=== PATIENT | female | born 1985 | race African-American/Black ===

== ENCOUNTER 2016-07-28 10:03 | Inpatient (IN) | payer MEDICAID ==
[2016-07-28] MEDS ORDERED: NS 2,400 ML IV ONE (10:25)
[2016-07-28] MEDS ORDERED: IBUPROFEN 200 MG TAB PO ONE (10:26)
[2016-07-28 10:30] LABS: COLOR YELLOW; LEUKOCYTE ESTERASE,URINE 3+ (NEGATIVE); NITRITE,URINE POSITIVE (NEGATIVE)
[2016-07-28] MEDS ORDERED: fentaNYL 100 MCG/2 ML INJ IVP ONE (10:30)
[2016-07-28 10:33] LABS: BACTERIA 2+ /hpf (NONE SEEN); MUCUS TRACE /lpf (NONE-1+); RBC,URINE 15-25 /hpf (0-3); WBC,URINE 50-182 /hpf (0-3)
[2016-07-28] MEDS ORDERED: ONDANSETRON 4 MG/2 ML VIAL ONE (10:33)
[2016-07-28 10:51] LABS: % IMMATURE GRANULYOCYTES 0.6 % (0.0-1.1); ABSOLUTE IMMATURE GRANULOCYTES 0.09 10^3/uL (0.00-0.10); ADD DIFF? NO; ADD MORPH? NO; ADD SCAN? NO; ATYPICAL LYMPHOCYTE FLAG 10 (0-99); FRAGMENT RBC FLAG 0 (0-99); HEMATOCRIT 41.6 % (38.0-47.0); HEMOGLOBIN 14.8 g/dL (12.6-16.3); LEFT SHIFT FLG 0 (0-99); LIPEMIA HEMOLYSIS FLAG 90 (0-99); MEAN CELL HEMOGLOBIN 32.5 pg (27.9-34.1); MEAN CELL HEMOGLOBIN CONCENTR. 35.6 g/dL (32.4-36.7); MEAN CELL VOLUME 91.4 fL (81.5-99.8); PLATELET CLUMPS FLAG 10 (0-99); PLATELET COUNT 201 10^3/uL (150-400); RED BLOOD CELL COUNT 4.55 10^6/uL (4.18-5.33); RED CELL DISTRIBUTION WIDTH 12.6 % (11.5-15.2)
[2016-07-28] MEDS ORDERED: HYDROmorphONE/DILAUDID 1 MG/ML SYR IVP ONE (11:02)
[2016-07-28] MEDS ORDERED: HYDROmorphONE/DILAUDID 1 MG/ML SYR ONE (11:03)
[2016-07-28 11:10] LABS: APTT 26.1 SEC (23.0-38.0); INR 1.11 (0.83-1.16); PROTIME(PATIENT) 14.2 SEC (12.0-15.0)
[2016-07-28 11:22] LABS: ANION GAP 11 mEq/L (8-16); BILIRUBIN,TOTAL 1.3 mg/dL (0.1-1.4); CALCIUM 9.4 mg/dL (8.5-10.4); CARBON DIOXIDE 21 mEq/l (22-31); CHLORIDE 105 mEq/L (97-110); CREATININE 0.8 mg/dL (0.6-1.0); GLOMERULAR FILTRATION RATE > 60; GLUCOSE 101 mg/dL (70-100); POTASSIUM 3.9 mEq/L (3.5-5.2); SODIUM 137 mEq/L (134-144)
--- NOTE | 2016-07-28 12:38 | EDPHY ---
H & P Stated Complaint: Right flank and abd. pain - Personal History LMP (Females 10-55): Hysterectomy - Medical/Surgical History Other PMH: UTI HPI/ROS: Chief complaint: Fevers and chills, right flank pain History of present illness: This is a 31-year-old female who presents to the emergency department for fevers and chills and right flank pain. Patient reports the onset of symptoms over the last few days. Symptoms have been worsening. She denies precipitating factors. She denies alleviating factors. She denies other associated signs or symptoms including no vomiting, no diarrhea or constipation, she denies urinary symptoms. Review of systems: A 10 point review of systems was obtained and other than described above was negative (Billy Worthington) - Physical Exam Exam: General Appearance: Alert, unwell appearing. Eyes: Pupils equal and round no pallor or injection. ENT, Mouth: Mucous membranes moist. Respiratory: There are no retractions, lungs are clear to auscultation. Cardiovascular: Regular rate and rhythm. Gastrointestinal: Abdomen is soft and nontender, no masses, bowel sounds normal. Genitourinary: Right-sided CVA tenderness Neurological: Alert and oriented. Strength and sensation intact and symmetrical. Skin: Warm and dry, no rashes. Musculoskeletal: Neck is supple nontender. Extremities are symmetrical, full range of motion. Psychiatric: Patient is oriented X 3, there is no agitation. (Billy Worthington) Constitutional: Initial Vital Signs Temperature (C) 39.1 C H 07/28/16 10:04 Heart Rate 135 H 07/28/16 10:04 Respiratory Rate 22 H 07/28/16 10:04 Blood Pressure 141/100 H 07/28/16 10:04 O2 Sat (%) 95 07/28/16 10:04 O2 Delivery Mode Nasal Cannula O2 (L/minute) 2 Allergies/Adverse Reactions: acetaminophen [From Tylenol-Codeine #3] Allergy (Verified 07/28/16 10:08) amoxicillin Allergy (Verified 07/28/16 10:08) codeine [From Tylenol-Codeine #3] Allergy (Verified 07/28/16 10:08) hydrocodone [From Vicodin] Allergy (Verified 07/28/16 10:08) Medical Decision Making ED Course/Re-evaluation: Patient is discussed with my secondary supervising physician Dr. Olegario Veras. Patient presents to the emergency depart with fevers and chills and right flank pain. On presentation she is unwell appearing. She does meet sepsis screening criteria. However, she did not meet severe sepsis or septic shock criteria. She is aggressively IV hydrated. She is symptomatically treated. She does appear to have a urinary tract infection. She is started on IV Rocephin. Vital signs have improved. However she remains unwell appearing. She will be admitted to the hospital for further evaluation and care. The plan has been discussed with the patient voiced understanding and agreement with it. (Billy Worthington) Differential Diagnosis: Included but not limited to cystitis, pyelonephritis, nephrolithiasis, urosepsis (Billy Worthington) - Data Points Laboratory Results: Laboratory Results 07/28/16 10:34 07/28/16 10:34 07/28/16 07/28/16 07/28/16 11:45 10:40 10:34 WBC RBC Hgb Hct MCV MCH MCHC RDW Plt Count MPV Neut % (Auto) Lymph % (Auto) [place] % (Auto) Eos % (Auto) Baso % (Auto) Nucleat RBC Rel Count Absolute Neuts (auto) Absolute Lymphs (auto) Absolute Monos (auto) Absolute Eos (auto) Absolute Basos (auto) Absolute Nucleated RBC Immature Gran % Immature Gran # PT INR APTT VBG Lactic Acid 0.6 mmol/L L mmol/L 0.9 mmol/L mmol/L (0.7-2.1) (0.7-2.1) Sodium 137 mEq/L mEq/L (134-144) Potassium 3.9 mEq/L mEq/L (3.5-5.2) Chloride 105 mEq/L mEq/L (97-110) Carbon Dioxide 21 mEq/l L mEq/l (22-31) Anion Gap 11 mEq/L mEq/L (8-16) BUN 8 mg/dL mg/dL (7-23) Creatinine 0.8 mg/dL mg/dL (0.6-1.0) Estimated GFR > 60 Glucose 101 mg/dL H mg/dL (70-100) Calcium 9.4 mg/dL mg/dL (8.5-10.4) Total Bilirubin 1.3 mg/dL mg/dL (0.1-1.4) Urine Color Urine Appearance Urine pH Ur Specific [place] Urine Protein Urine Ketones Urine Blood Urine Nitrate Urine Bilirubin Urine Urobilinogen Ur Leukocyte Esterase Urine RBC Urine WBC Ur Epithelial Cells Urine Bacteria Urine Mucus Urine Glucose 07/28/16 07/28/16 07/28/16 10:34 10:34 10:15 WBC 13.88 10^3/uL H 10^3/uL (3.80-9.50) RBC 4.55 10^6/uL 10^6/uL (4.18-5.33) Hgb 14.8 g/dL g/dL (12.6-16.3) Hct 41.6 % % (38.0-47.0) MCV 91.4 fL fL (81.5-99.8) MCH 32.5 pg pg (27.9-34.1) MCHC 35.6 g/dL g/dL (32.4-36.7) RDW 12.6 % % (11.5-15.2) Plt Count 201 10^3/uL 10^3/uL (150-400) MPV 10.0 fL fL (8.7-11.7) Neut % (Auto) 85.1 % H % (39.3-74.2) Lymph % (Auto) 7.1 % L % (15.0-45.0) [place] % (Auto) 7.1 % % (4.5-13.0) Eos % (Auto) 0.0 % L % (0.6-7.6) Baso % (Auto) 0.1 % L % (0.3-1.7) Nucleat RBC Rel Count 0.0 % % (0.0-0.2) Absolute Neuts (auto) 11.81 10^3/uL H 10^3/uL (1.70-6.50) Absolute Lymphs (auto) 0.98 10^3/uL L 10^3/uL (1.00-3.00) Absolute Monos (auto) 0.99 10^3/uL H 10^3/uL (0.30-0.80) Absolute Eos (auto) 0.00 10^3/uL L 10^3/uL (0.03-0.40) Absolute Basos (auto) 0.01 10^3/uL L 10^3/uL (0.02-0.10) Absolute Nucleated RBC 0.00 10^3/uL 10^3/uL (0-0.01) Immature Gran % 0.6 % % (0.0-1.1) Immature Gran # 0.09 10^3/uL 10^3/uL (0.00-0.10) PT 14.2 SEC SEC (12.0-15.0) INR 1.11 (0.83-1.16) APTT 26.1 SEC SEC (23.0-38.0) VBG Lactic Acid Sodium Potassium Chloride Carbon Dioxide Anion Gap BUN Creatinine Estimated GFR Glucose Calcium Total Bilirubin Urine Color YELLOW Urine Appearance HAZY Urine pH 5.0 (5.0-7.5) Ur Specific [place] 1.011 (1.002-1.030) Urine Protein 1+ H (NEGATIVE) Urine Ketones NEGATIVE (NEGATIVE) Urine Blood 2+ H (NEGATIVE) Urine Nitrate POSITIVE H (NEGATIVE) Urine Bilirubin NEGATIVE (NEGATIVE) Urine Urobilinogen NEGATIVE EU EU (0.2-1.0) Ur Leukocyte Esterase 3+ H (NEGATIVE) Urine RBC 15-25 /hpf H /hpf (0-3) Urine WBC 50-182 /hpf H /hpf (0-3) Ur Epithelial Cells 2+ /lpf H /lpf (NONE-1+) Urine Bacteria 2+ /hpf H /hpf (NONE SEEN) Urine Mucus TRACE /lpf /lpf (NONE-1+) Urine Glucose NEGATIVE (NEGATIVE) Medications Given: Discontinued Medications Fentanyl (Sublimaze) 50 mcg IVP EDNOW ONE Stop: 07/28/16 10:31 Last Admin: 07/28/16 10:42 Dose: 50 mcg Hydromorphone HCl (Dilaudid) 0.5 mg IVP EDNOW ONE Stop: 07/28/16 11:03 Last Admin: 07/28/16 11:13 Dose: 0.5 mg Sodium Chloride (Ns) 2,400 mls @ 4,800 mls/hr 30 ml/kg infuse over 30 min ( 2400 ml) IV EDNOW ONE Stop: 07/28/16 10:54 Last Admin: 07/28/16 10:43 Dose: 2,400 mls Ceftriaxone Sodium/Dextrose (Rocephin 1 Gm (Premix)) 50 mls @ 100 mls/hr IV EDNOW ONE PRN Reason: Protocol Stop: 07/28/16 11:05 Last Admin: 07/28/16 11:11 Dose: 50 mls Ibuprofen (Motrin) 800 mg PO EDNOW ONE Stop: 07/28/16 10:27 Last Admin: 07/28/16 10:42 Dose: 800 mg Departure - Departure Disposition: [facility] Inpatient Acute Clinical Impression: Acute pyelonephritis Condition: Fair
[2016-07-28] MEDS ORDERED: HYDROmorphONE/DILAUDID 2 MG/ML INJ IVP PRN (14:13)
[2016-07-28] MEDS ORDERED: PROMETHAZINE HCL 25 MG/ML INJ IVP PRN (14:13)
[2016-07-28] MEDS ORDERED: ONDANSETRON 4 MG/2 ML VIAL IVP PRN (14:13)
[2016-07-28] MEDS ORDERED: ACETAMINOPHEN 325 MG TAB PO PRN (14:13)
--- NOTE | 2016-07-28 14:14 | PDGENHP ---
History and Physical - Chief Complaint right flank pain - History of Present Illness This is a 31 y/o female with history of kidney stones who presents with severe 10/10 right sided flank pain. The pain began 4 days ago and has been worsening. She denies urinary frequency, urgency, or dysurea. She has had some fevers and chills. She began having nausea and vomiting last night. She denies previous episodes of pain like this. She was given fentanyl in the ED that did not help. History Information - Allergies/Home Medication List Allergies/Adverse Reactions: acetaminophen [From Tylenol-Codeine #3] Allergy (Verified 07/28/16 10:08) amoxicillin Allergy (Verified 07/28/16 10:08) codeine [From Tylenol-Codeine #3] Allergy (Verified 07/28/16 10:08) hydrocodone [From Vicodin] Allergy (Verified 07/28/16 10:08) Home Medications: NK [No Known Home Meds] 07/28/16 [Last Taken Unknown] I have personally reviewed and updated: family history, medical history, social history, surgical history - Past Medical History asthma Additional medical history: kidney stones - Surgical History Reports: hysterectomy - Social History Smoking Status: Current every day smoker Alcohol Use: None Drug Use: None Review of Systems ROS: 10pt was reviewed & negative except for what was stated in HPI & below Physical Exam Temp Pulse Resp BP Pulse Ox 37.5 C 91 17 101/61 95 07/28/16 13:20 07/28/16 13:20 07/28/16 13:20 07/28/16 13:20 07/28/16 13:20 O2 (L/minute) 2 Constitutional: uncomfortable Eyes: PERRL, anicteric sclera, EOMI Ears, Nose, Mouth, Throat: moist mucous membranes, hearing normal, ears appear normal, no oral mucosal ulcers Cardiovascular: regular rate and rhythym, no murmur, rub, or gallop, tachycardia , No edema Respiratory: no respiratory distress, no rales or rhonchi, clear to auscultation Gastrointestinal: normoactive bowel sounds, soft, non-tender abdomen, no palpable masses, No guarding, No rebound Genitourinary: other (bladder tenderness as well as right cva tenderness) Skin: warm, normal color, no rashes or abrasions, no fluctuance, no induration, other (healing abrasion right buttock), No mottled Musculoskeletal: full muscle strength, no muscle tenderness, normal joint ROM, no joint effusions Neurologic: AAOx3, CN II-XII Intact, No facial droop Psychiatric: interacting appropriately, No encephalopathic Lymph, Heme, Immunologic: no cervical LAD, no supraclavicular LAD Lab Data & Imaging Review 07/28/16 10:34 07/28/16 10:34 WBC 13.88 10^3/uL (3.80-9.50) H 07/28/16 10:34 RBC 4.55 10^6/uL (4.18-5.33) 07/28/16 10:34 Hgb 14.8 g/dL (12.6-16.3) 07/28/16 10:34 Hct 41.6 % (38.0-47.0) 07/28/16 10:34 MCV 91.4 fL (81.5-99.8) 07/28/16 10:34 MCH 32.5 pg (27.9-34.1) 07/28/16 10:34 MCHC 35.6 g/dL (32.4-36.7) 07/28/16 10:34 RDW 12.6 % (11.5-15.2) 07/28/16 10:34 Plt Count 201 10^3/uL (150-400) 07/28/16 10:34 MPV 10.0 fL (8.7-11.7) 07/28/16 10:34 Neut % (Auto) 85.1 % (39.3-74.2) H 07/28/16 10:34 Lymph % (Auto) 7.1 % (15.0-45.0) L 07/28/16 10:34 [place] % (Auto) 7.1 % (4.5-13.0) 07/28/16 10:34 Eos % (Auto) 0.0 % (0.6-7.6) L 07/28/16 10:34 Baso % (Auto) 0.1 % (0.3-1.7) L 07/28/16 10:34 Nucleat RBC Rel Count 0.0 % (0.0-0.2) 07/28/16 10:34 Absolute Neuts (auto) 11.81 10^3/uL (1.70-6.50) H 07/28/16 10:34 Absolute Lymphs (auto) 0.98 10^3/uL (1.00-3.00) L 07/28/16 10:34 Absolute Monos (auto) 0.99 10^3/uL (0.30-0.80) H 07/28/16 10:34 Absolute Eos (auto) 0.00 10^3/uL (0.03-0.40) L 07/28/16 10:34 Absolute Basos (auto) 0.01 10^3/uL (0.02-0.10) L 07/28/16 10:34 Absolute Nucleated RBC 0.00 10^3/uL (0-0.01) 07/28/16 10:34 Immature Gran % 0.6 % (0.0-1.1) 07/28/16 10:34 Immature Gran # 0.09 10^3/uL (0.00-0.10) 07/28/16 10:34 PT 14.2 SEC (12.0-15.0) 07/28/16 10:34 INR 1.11 (0.83-1.16) 07/28/16 10:34 APTT 26.1 SEC (23.0-38.0) 07/28/16 10:34 VBG Lactic Acid 0.6 mmol/L (0.7-2.1) L 07/28/16 11:45 Sodium 137 mEq/L (134-144) 07/28/16 10:34 Potassium 3.9 mEq/L (3.5-5.2) 07/28/16 10:34 Chloride 105 mEq/L (97-110) 07/28/16 10:34 Carbon Dioxide 21 mEq/l (22-31) L 07/28/16 10:34 Anion Gap 11 mEq/L (8-16) 07/28/16 10:34 BUN 8 mg/dL (7-23) 07/28/16 10:34 Creatinine 0.8 mg/dL (0.6-1.0) 07/28/16 10:34 Estimated GFR > 60 07/28/16 10:34 Glucose 101 mg/dL (70-100) H 07/28/16 10:34 Calcium 9.4 mg/dL (8.5-10.4) 07/28/16 10:34 Total Bilirubin 1.3 mg/dL (0.1-1.4) 07/28/16 10:34 Urine Color YELLOW 07/28/16 10:15 Urine Appearance HAZY 07/28/16 10:15 Urine pH 5.0 (5.0-7.5) 07/28/16 10:15 Ur Specific [place] 1.011 (1.002-1.030) 07/28/16 10:15 Urine Protein 1+ (NEGATIVE) H 07/28/16 10:15 Urine Ketones NEGATIVE (NEGATIVE) 07/28/16 10:15 Urine Blood 2+ (NEGATIVE) H 07/28/16 10:15 Urine Nitrate POSITIVE (NEGATIVE) H 07/28/16 10:15 Urine Bilirubin NEGATIVE (NEGATIVE) 07/28/16 10:15 Urine Urobilinogen NEGATIVE EU (0.2-1.0) 07/28/16 10:15 Ur Leukocyte Esterase 3+ (NEGATIVE) H 07/28/16 10:15 Urine RBC 15-25 /hpf (0-3) H 07/28/16 10:15 Urine WBC 50-182 /hpf (0-3) H 07/28/16 10:15 Ur Epithelial Cells 2+ /lpf (NONE-1+) H 07/28/16 10:15 Urine Bacteria 2+ /hpf (NONE SEEN) H 07/28/16 10:15 Urine Mucus TRACE /lpf (NONE-1+) 07/28/16 10:15 Urine Glucose NEGATIVE (NEGATIVE) 07/28/16 10:15 Assessment & Plan Assessment: This is a 31 y/o female presenting with #right sided flank pain suspect pyelonephritis vs infected kidney stone #sepsis without signs of severe sepsis or septic shock #h/o asthma (controlled) Plan: -Continue IV Rocephin -IVF -noncontrast CT abd to eval for stones -IV Dilaudid as needed for pain Dispo: will admit to inpatient given her severity of illness. Will likely require >24 hours in hospital
[2016-07-28] MEDS: D5W 1/2 NS W/ 20 KCl/L 1,000 ML IV SCH (15:24)
[2016-07-28] MEDS ORDERED: HYDROmorphONE/DILAUDID 1 MG/ML SYR IVP PRN (15:27)
[2016-07-28] MEDS: KETOROLAC 30 MG/1 ML SDV IVP PRN ×2 (15:29→21:05)
[2016-07-28] MEDS: HYDROmorphONE/DILAUDID 1 MG/ML SYR IVP PRN ×4 (17:01→21:50)
--- NOTE | 2016-07-28 17:32 | SOAPPROG ---
SOAP Progress Note Assessment/Plan: Assessment: Acute pyelonephritis Acute pain, fevers, possible renal abscess, sonogram pending Plan: renal sono, perc abscess if present, stone rx conservative at this time 07/28/16 17:29 Subjective: rt flank pain Objective: Vital Signs Temp Pulse Resp BP Pulse Ox 36.7 C 87 16 121/72 H 95 07/28/16 15:55 07/28/16 15:55 07/28/16 15:55 07/28/16 15:55 07/28/16 15:55 PT 14.2 SEC (12.0-15.0) 07/28/16 10:34 INR 1.11 (0.83-1.16) 07/28/16 10:34 Physical Exam - Physical Exam General Appearance: alert Neck: supple, normal inspection Respiratory: No respiratory distress Cardiac/Chest: regular rate, rhythm Abdomen: soft Back: CVA tenderness (mild right) Neuro/Psych: alert, oriented x 3 ICD10 Worksheet Patient Problems: Problems Problem Status Onset Acute pyelonephritis Acute
--- NOTE | 2016-07-28 18:43 | GCON ---
[f rep st] CONSULTATION DATE OF CONSULTATION: 07/28/2016 HISTORY OF PRESENT ILLNESS: I have been asked to see this lady by Dr. Pittman because of possible ure teral stone and renal abscess. By history, she was admitted to the hospital because of right flank pain. She is a 31-year-old lady whom, she has told me, has not had kidney stones. She may have had a urinary tract infection but was not treated with antibiotics. She may have had a family history of stones with her mother needing to have a stone taken out. She has had pain that started 4 days a go and worsened. She was here having a picnic with her children while her fiancee was at work and d eveloped severe pain, fevers and had nausea and vomiting and was admitted to the hospital via the em ergency room. She lives in [place], is a mother of 2 and a [id number] mom with no significant past medical history, that we could elucidate. ALLERGIES: She says she is allergic to hydrocodone, codeine, amoxicillin and acetaminophen. MEDICATIONS: No known medications are known. She has a past history of asthma and I cannot documen t the kidney stone history. She reports having a hysterectomy in the past. SOCIAL HISTORY: She is a current daily smoker. Uses no alcohol or drugs. REVIEW OF SYSTEMS: Negative cardiac, respiratory, and endocrine. GI: She has had the nausea and v omiting. GENITOURINARY: She has had the right flank pain. VITAL SIGNS: Today, her vital signs are stable with her blood pressure 121/72, pulse 87, O2 saturat ion is 95% on 2 L nasal cannula. Her I and O status is documented at 3200 cc of fluid in and we hav e not documented her urinary output. Her urinalysis was positive +2 for blood, positive for nitrites. She is leukocyte esterase positive . Urine white blood cells, 182 and bacteria +2. Her creatinine is 0.8. I have reviewed her CAT scan that revealed perinephric stranding with what appeared to be an enlarge d right kidney with most likely pyelonephritis without air in the collecting system. She had a righ t upper pole abnormality that was confirmed to be a Bosniak 2 cyst by ultrasound that I reviewed. S he has no hydronephrosis. She has a normal ureteral jet of urine going into the bladder on the righ t side and may have had a 2 mm stone in the distal ureter. PHYSICAL EXAMINATION: GENERAL: She is alert and oriented x3. She really does not appear to be in much pain right now. ABDOMEN: She has had some right flank pain, right abdominal pain. It does no t appear that it radiates to her bladder and abdomen is otherwise soft. EXTREMITIES: She has no lo wer extremity edema. HEART: Regular rate and rhythm. LUNGS: Unlabored breathing. NEUROLOGIC: S he is oriented x3, with appropriate affect. At the present time, after discussion with Dr. Mobley and the ultrasound, I feel that it is appr opriate to not do any further assessment or invasive procedures of the kidneys and the working diagn osis is pyelonephritis without hydronephrosis, obstruction or abscess and appropriate antibiotic the rapy should be instituted awaiting cultures. The possible small stone with showing no obstruction w ould not intervene at this time and would treat her primarily as a pyelonephritis. Her blood sugar was 101 and it may be appropriate for her to have a hemoglobin A1c. Her white blood count 13.88 wit h 85.1 neutrophils, platelet count was 201, and hematocrit 41.6. At the present time, appropriate I V antibiotics have been instituted. Urine culture and blood cultures have been sent and would angelica nue the present treatment and I will follow her in the hospital and further intervention will be add ressed and we would have further discussion about the future assessment and workup. The referring d joseph was Toya and we spent approximately 45 minutes in discussion and reviewing the patient's marlon t, discussing with Radiology, talking with the patient and this patient's care. /[id number]/MODL
[2016-07-29] MEDS: HYDROmorphONE/DILAUDID 1 MG/ML SYR IVP PRN ×11 (00:15→20:46)
[2016-07-29] MEDS: D5W 1/2 NS W/ 20 KCl/L 1,000 ML IV SCH ×3 (00:22→17:54)
[2016-07-29] MEDS: KETOROLAC 30 MG/1 ML SDV IVP PRN ×4 (02:10→20:31)
[2016-07-29 04:38] LABS: % IMMATURE GRANULYOCYTES 0.5 % (0.0-1.1); ABSOLUTE IMMATURE GRANULOCYTES 0.06 10^3/uL (0.00-0.10); ADD DIFF? NO; ADD MORPH? NO; ADD SCAN? NO; ATYPICAL LYMPHOCYTE FLAG 0 (0-99); FRAGMENT RBC FLAG 0 (0-99); HEMATOCRIT 32.3 % (38.0-47.0); HEMOGLOBIN 11.2 g/dL (12.6-16.3); LEFT SHIFT FLG 10 (0-99); LIPEMIA HEMOLYSIS FLAG 90 (0-99); MEAN CELL HEMOGLOBIN 32.6 pg (27.9-34.1); MEAN CELL HEMOGLOBIN CONCENTR. 34.7 g/dL (32.4-36.7); MEAN CELL VOLUME 93.9 fL (81.5-99.8); MEAN PLATELET VOLUME 10.1 fL (8.7-11.7); PLATELET CLUMPS FLAG 10 (0-99); PLATELET COUNT 154 10^3/uL (150-400); RED BLOOD CELL COUNT 3.44 10^6/uL (4.18-5.33); RED CELL DISTRIBUTION WIDTH 12.7 % (11.5-15.2)
[2016-07-29 04:53] LABS: ANION GAP 5 mEq/L (8-16); CALCIUM 8.2 mg/dL (8.5-10.4); CARBON DIOXIDE 21 mEq/l (22-31); CHLORIDE 109 mEq/L (97-110); CREATININE 0.7 mg/dL (0.6-1.0); GLOMERULAR FILTRATION RATE > 60; GLUCOSE 103 mg/dL (70-100); POTASSIUM 3.9 mEq/L (3.5-5.2); SODIUM 135 mEq/L (134-144)
[2016-07-29] MEDS: TAMSULOSIN HCL 0.4 MG CAP PO SCH (08:17)
[2016-07-29] MEDS: cefTRIAXone 2 GM in D5W 50 ML IV SCH (09:04)
[2016-07-29] MEDS: ACETAMINOPHEN 325 MG TAB PO PRN ×3 (09:14→22:44)
--- NOTE | 2016-07-29 10:03 | SOAPPROG ---
SOAP Progress Note Assessment/Plan: Assessment: Acute pyelonephritis Acute pain, fevers, possible renal abscess, sonogram noted cyst and pyelonephritis. No need for draining of cyst. 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, stone rx conservative at this time 07/29/16 10:01 Subjective: pain persists, no nausea or vomiting today, on way to shower Objective: Vital Signs Temp Pulse Resp BP Pulse Ox 37.8 C 107 H 20 110/77 93 07/29/16 08:00 07/29/16 08:00 07/29/16 08:00 07/29/16 08:00 07/29/16 08:00 Laboratory Results 07/29/16 04:17 07/29/16 04:17 07/28/16 07/29/16 07/30/16 05:59 05:59 05:59 Intake Total 2504 Output Total 800 750 Balance 1704 -750 PT 14.2 SEC (12.0-15.0) 07/28/16 10:34 INR 1.11 (0.83-1.16) 07/28/16 10:34 Physical Exam - Physical Exam General Appearance: alert Neck: supple Respiratory: No respiratory distress Abdomen: soft Back: CVA tenderness (mild right) Skin: No jaundice Neuro/Psych: alert, oriented x 3 ICD10 Worksheet Patient Problems: Problems Problem Status Onset Acute pyelonephritis Acute
--- NOTE | 2016-07-29 12:25 | HOSPPROG ---
Hospitalist Progress Note Assessment/Plan: This is a 31 y/o female presenting with #right sided flank pain due to pyelonephritis and 2.5mm mid ureteral stone ( improving) #sepsis without signs of severe sepsis or septic shock #h/o asthma (controlled) Plan: -Continue IV Rocephin -continue IVF -start oxyir for pain (pt has taken Percocet prior without problems) -urology consult note reviewed and appreciated Dispo: continue inpatient care Subjective: continues to have right flank pain . improving from yesterday. fever /chills persists. resolved n&v Objective: Vital Signs Temp Pulse Resp BP Pulse Ox 36.8 C 80 16 110/70 96 07/29/16 12:16 07/29/16 12:08 07/29/16 12:08 07/29/16 12:08 07/29/16 12:08 Laboratory Results 07/29/16 04:17 07/29/16 04:17 07/28/16 07/29/16 07/30/16 05:59 05:59 05:59 Intake Total 2504 Output Total 800 950 Balance 1704 -950 PT 14.2 SEC (12.0-15.0) 07/28/16 10:34 INR 1.11 (0.83-1.16) 07/28/16 10:34 ct abd/pelvis and abd u/s reviewed - Physical Exam Constitutional: no apparent distress, appears nourished, not in pain Cardiovascular: regular rate and rhythym, no murmur, rub, or gallop Respiratory: no respiratory distress, no rales or rhonchi, clear to auscultation Gastrointestinal: normoactive bowel sounds, soft, non-tender abdomen, no palpable masses, No guarding, No rebound Neurologic: AAOx3, sensation intact bilaterally ICD10 Worksheet Patient Problems: Problems Problem Status Onset Acute pyelonephritis Acute
[2016-07-29] MEDS: oxyCODONE IR 5 MG TAB PO PRN ×3 (12:43→22:45)
[2016-07-30] MEDS: oxyCODONE IR 5 MG TAB PO PRN ×2 (05:36→11:04)
[2016-07-30] MEDS: D5W 1/2 NS W/ 20 KCl/L 1,000 ML IV SCH (05:37)
[2016-07-30] MEDS: KETOROLAC 30 MG/1 ML SDV IVP PRN (05:37)
[2016-07-30 05:39] VITALS: O2SAT 95
[2016-07-30 08:36] VITALS: BP 108/66; PULSE 87; RESP 16; TEMP 98.3
[2016-07-30] MEDS: TAMSULOSIN HCL 0.4 MG CAP PO SCH (08:49)
[2016-07-30] MEDS: HYDROmorphONE/DILAUDID 1 MG/ML SYR IVP PRN (08:50)
[2016-07-30] MEDS: cefTRIAXone 2 GM in D5W 50 ML IV SCH (08:58)
[2016-07-30] MEDS: ACETAMINOPHEN 325 MG TAB PO PRN (10:44)
--- NOTE | 2016-07-30 10:52 | GDS ---
[f rep st] DISCHARGE SUMMARY DISCHARGE DIAGNOSES: 1. Pyelonephritis. 2. 2.5 mm mid-ureteral nonobstructing kidney stone. 3. Resolved sepsis, without signs of severe sepsis or septic shock. 4. History of asthma. CONSULTANTS: Dr. Jose De Jesus Limon, Urology. HOSPITAL COURSE BY PROBLEM: Pyelonephritis: The patient was admitted to the hospital with the init ial diagnosis of pyelonephritis. When I saw her on initial presentation, she was writhing in pain. A CT of the abdomen and pelvis was done, which revealed a 2.5 mm right mid-ureteral stone. She als o had an irregularity in her right kidney, that was thought to be a possible abscess. Subsequently, abdominal ultrasound was done later on in the day, which confirmed that the area was not an abscess , and likely represented a Bosniak category 2 cyst. She was seen in consultation by Dr. Limon, who did not recommend removing the stone, given the fact that it was so small and not obstructing. The patient has been straining her urine. She has been started on Flomax. On day of discharge, her pain is controlled on oral oxycodone. She is tolerating a regular diet. U rine cultures have grown E coli, that was sensitive to quinolones. Blood cultures have not grown an y organisms to date. PHYSICAL EXAM: VITAL SIGNS: On day of discharge, blood pressure 108/66, pulse of 87, respiratory r ate 16, O2 saturation 95% on room air, temperature afebrile. GENERAL: In no acute distress. PERTINENT LABS AND STUDIES: CT of the abdomen pelvis on 07/28/2016, refer to report. DISCHARGE MEDICATIONS: Please refer to discharge medication reconciliation in [facility] for details, as well as a preliminary list. NEW MEDICATIONS ON HOSPITAL DISCHARGE: Cipro 500 mg p.o. twice daily for 10 days, Flomax 0.4 mg p.o . daily, oxycodone 5-10 mg p.o. q.4 hours p.r.n. pain. Prescription for #20 was given. DISCHARGE INSTRUCTIONS: The patient will be discharged from the hospital, where she should follow u p with her primary care provider next week. Once again, she should have follow up to ensure that th e blood cultures drawn on 07/28/2016, did not grow any organisms. She should follow up with Urology , if she does not pass her stone, or if her symptoms return. /[id number]/MODL
== END 2016-07-30 14:00 | disposition home or self-care (01) | DRG 872 ==
LOC: F1N 13:53 → OBSVTOIN 14:12
PROVIDERS: ADMIT Family Medicine; ATTEND Family Medicine
DX: A41.9 Sepsis, unspecified organism (principal); N10 Acute pyelonephritis; N20.0 Calculus of kidney; Z87.440 Personal history of urinary (tract) infections; F17.210 Nicotine dependence, cigarettes, uncomplicated; J45.909 Unspecified asthma, uncomplicated
CPT/HCPCS: 96365; J0696; J1170; J1885; J2405; J3010